=== PATIENT | female | born 1955 ===

== ENCOUNTER 2024-07-07 08:23 | Day surgery (SDC) | payer OTHER ==
[2024-07-07] MEDS ORDERED: fentaNYL CITRATE 50 MCG/ML AMPUL IV PUSH ONE (11:15)
[2024-07-07] MEDS ORDERED: MIDAZOLAM HCL 2 MG/2 ML VIAL IV ONE (11:15)
[2024-07-07] MEDS ORDERED: CIPRO500 MG PO (11:24)
[2024-07-07] MEDS ORDERED: METRONIDAZOLE500 MG PO (11:24)
== END 2024-07-07 12:45 | disposition home or self-care (01) ==
LOC: AMB-ENDOS 08:23
PROVIDERS: ATTEND Surgery
DX: K52.89 Other specified noninfective gastroenteritis and colitis (principal); K57.32 Diverticulitis of large intestine without perforation or abscess without bleeding